=== PATIENT | female | born 1975 | race Caucasian/White ===

== ENCOUNTER → 2016-12-18 17:06 | Outpatient (CLI) | payer MEDICAID | END | disposition home or self-care (01) | LOC: D.MAMMO 10:30 | DX: Z12.31 Encounter for screening mammogram for malignant neoplasm of breast (principal) ==

== ENCOUNTER 2017-03-24 22:25 | Emergency (ER) | payer SELFPAY | END 2017-03-25 00:20 | disposition home or self-care (01) | LOC: D.ER 22:25 | DX: S06.0X0A Concussion without loss of consciousness, initial encounter (principal); W01.0XXA Fall on same level from slipping, tripping and stumbling without subsequent striking against object, initial encounter; Y93.01 Activity, walking, marching and hiking; Y92.830 Public park as the place of occurrence of the external cause; S93.402A Sprain of unspecified ligament of left ankle, initial encounter; F17.200 Nicotine dependence, unspecified, uncomplicated ==

== ENCOUNTER 2018-09-07 07:40 | Day surgery (SDC) | payer MEDICAID ==
[2018-09-04 10:14] LABS: MCH 31.5 pg (26.0-34.0); MCHC 34.1 g/dL (31.0-37.0); MCV 92.1 fL (80.0-100.0); RBC 4.45 10x6/uL (4.00-5.40); RDW 13.3 % (11.5-14.5); WBC 8.4 10x3/uL (4.8-10.8)
[~2018-09-07] VITALS: Ht 160 cm; Wt 96.2 kg
--- NOTE | ~2018-09-07 | OP ---
PATIENT NAME: MITRA PENA MEDICAL RECORD: [id number] LOCATION:D.OPS ADMISSION DATE: SURGEON: ANA LIAO MD DATE OF OPERATION: 09/07/2018 PREOPERATIVE DIAGNOSIS: Painful ganglion cyst of the right wrist. POSTOPERATIVE DIAGNOSIS: Painful ganglion cyst of the right wrist. PROCEDURE: Excision of painful ganglion cyst of the right wrist. SURGEON: Ana Liao MD ANESTHESIA: General. INTRAOPERATIVE COMPLICATIONS: None. SUMMARY OF PATHOLOGIC FINDINGS: The patient had a painful ganglion cyst just ulnar to the radial artery emanating from the wrist capsule. OPERATIVE SUMMARY IN DETAIL: After obtaining the appropriate preoperative orthopedic surgery consent as well as anesthetic consultation, evaluation and clearance, the patient was brought to the operating room and placed on the operating table in supine position. After adequate general laryngeal mask airway was administered, tourniquet was placed about the proximal aspect of the right upper extremity. Right upper extremity was then prepped and draped in routine sterile fashion. The leg was elevated and exsanguinated, tourniquet inflated to 250 mmHg. A small incision was created over the ganglion cyst and it was taken down to the ganglion cyst, which was bilobed. It was identified on all sides and dissection was carried down to the stalk. At this point, the ganglion cyst was removed and a 3-0 Vicryl was utilized to repair the small rent in the volar aspect of the wrist capsule. The wound was then irrigated and closed with 4-0 Prolene in routine interrupted fashion. Sterile dressings were applied. The area was locally infiltrated with lidocaine. Then, sterile dressings were applied. Tourniquet was deflated. The patient was awakened, taken to recovery room in stable condition. All final needle and sponge counts were correct. TRANSINT:[id number] Voice Confirmation ID: [id number] DOCUMENT ID: [id number] ANA LIAO MD at 1351 CC: [id number] DICTATION DATE: 09/17/18 1045 CULINARY CHEF: 09/17/[address] [facility] 09/07/18 [place] [address]
[~2018-09-07 07:40] MED LIST: ACETAMINOPHEN500 M1 PO; CENTRUM SILVER1 EAC3 PO; GABAPENTIN100 MG PO; GLUCOSAMINE HC500 MG PO
[2018-09-07 08:09] VITALS: BP 143/78; Ht 160 cm; Wt 96.2 kg
[2018-09-07 08:31] LABS: HCG URINE NEGATIVE (NEGATIVE)
[2018-09-07] MEDS ORDERED: NORCO 10-325 TA1 TAB PO (12:03)
== END 2018-09-07 13:50 | disposition home or self-care (01) ==
LOC: D.OPS 07:40 → D.PAN 09:45 → D.OPS 10:00
PROVIDERS: Anesthesiology; Orthopaedic Surgery
DX: M67.431 Ganglion, right wrist (principal); Z01.812 Encounter for preprocedural laboratory examination